=== PATIENT | female | born 2000 ===

== ENCOUNTER 2023-08-14 07:43 | Outpatient (CLI) | payer OTHER, SELFPAY | END 2023-08-14 07:44 | disposition home or self-care (01) | LOC: ANHAUDIO 07:44 | PROVIDERS: PCP Family Medicine; Visit Provider Family Medicine | DX: Z01.10 Encounter for examination of ears and hearing without abnormal findings (principal) | CPT/HCPCS: 92552; 92556; 92567 ==

== ENCOUNTER 2024-08-28 08:47 | Outpatient (CLI) | payer MEDICARE, MEDICAID, SELFPAY ==
--- OUTSIDE RECORDS SUMMARY | 2024-08-28 09:30 | XMS_ITS ---
Author Organization [employer] Address [address] [place] [address] Care Team Providers Care Dietary Assistant Name Role Phone Jasmeet Nunez Primary Care Provider JUMANA Johnson Unavailable [phone] REASON FOR VISIT Other Encounters Encounter Location Date Provider Diagnosis [facility] [address] [place] [address] 08/04/2023 JUMANA NOGUERA Plan Of Treatment No Information Progress Notes * SUKHDEV ZHAO MDOB:2000 (22 yo F)Acc No.[id number]:08/04/2023 Patient: Britton SUKHDEV GONZALES :2000 A ge:22 Y S ex:Female Address:[address] [place] [id number] * true * Date: Generated for Printi ng/Faxing/eTransmitting on: 0 08/28/2024 09:29 AM CDT
--- OUTSIDE RECORDS SUMMARY | 2024-08-28 09:30 | XMS_ITS ---
Author Organization Unknown Address [address] [place] [phone] Phone Care Team Providers Care Mental Health Coordinator Name Role Phone CHUCKIE Conklin Attending Unavailable TAMIA Pierce Primary Unavailable Immunization Immunization Date Status Additional Notes Code Code System MMR 01/05/2004 Completed 03 CVX MMR 08/06/2007 Completed 03 CVX IPV 01/28/2003 Completed 10 CVX IPV 03/31/2003 Completed 10 CVX IPV 06/02/2003 Completed 10 CVX IPV 08/06/2007 Completed 10 CVX influenza, split (incl. purified surface antigen) 04/09/2009 Completed 15 CV X DTaP 01/28/2003 Completed 20 CVX DTaP 03/31/2003 Completed 20 CVX DTaP 06/02/2003 Completed 20 CVX DTaP 01/05/2004 Completed 20 CVX DTaP 08/06/2007 Completed 20 CVX varicella 01/05/2004 Completed 21 CVX varicella 08/06/2007 Completed 21 CVX Hep A, pediatric, unspecifie d formulation 11/11/2009 Completed 31 CVX Hep A, pediatric, unspecifie d formulation 11/10/2010 Completed 31 CVX Hib-Hep B 01/28/2003 Completed 51 CVX Hib-Hep B 03/31/2003 Completed 51 CVX Hib-Hep B 01/05/2004 Completed 51 CVX HPV, quadrivalent 12/11/2014 Completed 62 C VX influenza, unspecified formulation 02/07/2005 Completed 88 CVX influenza, unspecified formulation 02/23/2005 Completed 88 CVX influenza, unspecified formulation 03/06/2006 Completed 88 CVX influenza, unspecified formulation 02/07/2007 Completed 88 CVX influenza, unspecified formulation 03/15/2007 Completed 88 CVX influenza, unspecified formulation 01/14/2010 Completed 88 CVX pneumococcal conjugate PCV 7 01/28/2003 Completed 100 CVX pneumococcal conjugate PCV 7 03/31/2003 Completed 100 CVX pneumococcal conjugate PCV 7 06/02/2003 Completed 100 CVX pneumococcal conjugate PCV 7 01/05/2004 Completed 100 CVX meningococcal MCV4P 12/11/2014 Completed 114 CVX Tdap 12/11/2014 Completed 115 CVX Novel [id number] 02/06/2009 Completed 127 CVX Novel [id number] 02/27/2009 Completed 127 CVX Meningococcal MCV4O 11/16/2020 Completed 136 CVX Influenza, split virus, trivalent, PF 01/13/2011 Completed 140 CVX Influenza, split virus, trivalent, preservative 12/20/2023 Completed 141 CVX Influenza, split virus, quadrivalent, PF 05/06/2022 Completed 150 CVX HPV9 12/21/2016 Completed 165 CVX COVID-19, mRNA, LNP-S, PF, 3 0 mcg/0.3 mL dose 08/26/2020 Completed 208 CVX COVID-19, mRNA, LNP-S, PF, 3 0 mcg/0.3 mL dose 09/17/2020 Completed 208 CVX COVID-19, mRNA, LNP-S, PF, 5 0 mcg/0.5 mL 12/21/2023 Completed 312 CVX Social History Type Status Start Date End Date Code Code Syst em Smoking History Never smoker (Never Smoked) 101473844 SNOMED CT Sex Female Assessment You had the following problems:ATTENTION-DEFICIT HYPERACTIVITY DISORDER, UNSPECIFIED TYPEOTHER ALLERGIC RHINITIS Hospital Discharge Instructions Should you have any questions prior to discharge, please contact a member of your healthcare team. If you have left the hospital and have any questions, please contact your primary care physician. Reason For Referral No Data Found Problems Problem Start Date Resolved Date Status Code Code System ATTENTION-DEFICIT HYPERACTIV ITY DISORDER, UNSPECIFIED TYPE active 149609363 S NOMED-CT OTHER ALLERGIC RHINITIS active 173622 04 SNOMED-CT Plan of Treatment US Pelvis (84410) 11/07/2023 US Pelvis/Transvaginal (93592) 11/07/19 24 US Pelvis (03599) 11/07/2023 US Pelvis/Transvaginal (53657) 07/30/20 24 Encounters Encounter Diagnosis Start Date Code Code Sys tem Arthralgia of the ankle and/or foot 09/11/2023 59044 4009 SNOMED-CT Personal Care Team Section Performer Name Performer Role Active Date Inactive JESSICA Hutchison PCP - Primary care physician 2023-05-10
--- OUTSIDE RECORDS SUMMARY | 2024-08-28 09:30 | XMS_ITS ---
Author Organization [employer] Address [address] [place] [address] Care Team Providers Care Crew Trainer Name Role Phone Jasmeet Nunez Primary Care Provider JUMANA Johnsno Unavailable [phone] REASON FOR VISIT Other Encounters Encounter Location Date Provider Diagnosis [facility] [address] [place] [address] 08/03/2023 JUMANA NOGUERA Plan Of Treatment No Information Progress Notes * SUKHDEV ZHAO MDOB:2000 (22 yo F)Acc No.[id number]:08/03/2023 Patient: Britton SUKHDEV GONZALES :2000 A ge:22 Y S ex:Female Address:[address] [place] [id number] * true * Date: Generated for Printi ng/Faxing/eTransmitting on: 0 08/28/2024 09:30 AM CDT
--- OUTSIDE RECORDS SUMMARY | 2024-08-28 09:30 | XMS_ITS ---
Author Organization Unknown Address [address] [place] [phone] Phone Care Team Providers Care Sheet Roller Operator Name Role Phone BHARTIPHOEBE DEE DEE Attending Unavailable TAMIA Pierce Primary Unavailable Immunization [...] CVX Tdap 12/11/2014 Completed 115 CVX Novel [id number] 02/06/2009 Completed 127 CVX Novel [id number]-B1Q4-43 02/27/2009 Completed 127 CVX Meningococcal MCV4O 11/16/2020 [...] 0 mcg/0.5 mL 12/21/2023 Completed 312 CVX Results SHRIMP IGE(REF) - Collect Da te/Time: 05/23/2023 06:25 [facility] ID: [id number] [id number] [place] [address], [phone] LOINC: 6246-3 Test Value Unit Reference Range Code Code System Flag [id number] Shrimp 9.71 Class IV 6246-3 LOINC A CRAB IGE(REF) - Collect Date /Time: 05/23/2023 06:25 [facility] ID: [id number] [address] [place] [address], [phone] LOINC: 6092-1 Test Value Unit Reference Range Code Code System Flag [id number] Crab 1.78 Class III 6092-1 LOINC A PEANUT IGE - Collect Date/Ti me: 05/23/2023 06:25 [facility] ID: [id number] [address] [place] [address], [phone] LOINC: 6206-7 Test Value Unit Reference Range Code Code System Flag [id number] Peanut 3.77 Class III 6206-7 LOINC A ALMOND IGE(REF) - Collect Da te/Time: 05/23/2023 06:25 [facility] ID: [id number] [address] [place] [address], [phone] LOINC: 6019-4 Test Value Unit Reference Range Code Code System Flag [id number] Burke 3.11 Class III 6019-4 LOINC A CASHEW NUT IGE REF - Collect Date/Time: 05/23/2023 06:25 [facility] ID: [id number] [address] [place] [address], [phone] LOINC: 6718-1 Test Value Unit Reference Range Code Code System Flag [id number] Cashew Nut 0.63 Class II 6718-1 LOINC A WALNUT IGE - Collect Date/Ti me: 05/23/2023 06:25 [facility] ID: [id number] [address] [place] [address], [phone] LOINC: 6273-7 Test Value Unit Reference Range Code Code System Flag [id number] Oak Vale 1.91 Class III 6273-7 LOINC A PECAN NUT IGE - Collect Date /Time: 05/23/2023 06:25 [facility] ID: [id number] [address] [place] [address], [phone] LOINC: 6208-3 Test Value Unit Reference Range Code Code System Flag [id number] Pecan Nut 0.16 Class 0/I 6208-3 LOINC A HAZELNUT IGE(REF) - Collect Date/Time: 05/23/2023 06:25 [facility] ID: [id number] [address] [place] [address], [phone] LOINC: 6136-6 Test Value Unit Reference Range Code Code System Flag [id number] Hazelnut(Filbert) 1.99 Class III 6136-6 MATTHIAS NC A TUNA IGE REF - Collect Date/ Time: 05/23/2023 06:25 [facility] ID: [id number] [id number] [place] [address], [phone] LOINC: 6270-3 Test Value Unit Reference Range Code Code System Flag [id number] Tuna <0.10 Class 0 6270-3 LOINC Social History Type Status Start Date End Date Code Code Syst em Smoking History Never smoker (Never Smoked) 002127664 SNOMED CT Sex Female Assessment You had [...] ATTENTION-DEFICIT HYPERACTIV ITY DISORDER, UNSPECIFIED TYPE active 795133687 S NOMED-CT OTHER ALLERGIC RHINITIS active 154192 04 SNOMED-CT Plan of Treatment US Pelvis (80298) 11/07/2023 US Pelvis/Transvaginal (88557) 11/07/19 24 US Pelvis (12693) 11/07/2023 US Pelvis/Transvaginal (73348) 11/07/19 24 Encounters Encounter Diagnosis Start Date Code Code Sys tem Attention-deficit hyperactiv ity disorder, unspecified type 05/23/2023 SNOMED-CT Personal Care Team Section Performer Name Performer Role Active Date Inactive JESSICA Hutchison PCP - Primary care physician 2023-05-10
--- OUTSIDE RECORDS SUMMARY | 2024-08-28 09:30 | XMS_ITS ---
Author Organization Unknown Address [address] [place] [phone] Phone Care Team Providers Care Shipping And Receiving Weigher Name Role Phone SINA JARVIS PMHNP Attending Unavailable TAMIA Pierce Primary Unavailable Immunization [...] CVX Tdap 12/11/2014 Completed 115 CVX Novel [id number] 02/06/2009 Completed 127 CVX Novel [id number]-T8K0-43 02/27/2009 Completed 127 CVX Meningococcal MCV4O 11/16/2020 [...] mcg/0.5 mL 12/21/2023 Completed 312 CVX Results COMPREHENSIVE METABOLIC PANE L - Collect Date/Time: 04/29/2024 07:55 [facility] ID: [id number] [address] [place], [place], [phone] LOINC: 50294-9 Test Value Unit Reference Range Code Code System Flag FASTING NO BUN 8 mg/dL L=7 H=20 3094-0 LOINC CREATININE 0.80 mg/dL L=0.52 H=1.04 2160-0 LOINC GLUCOSE 102 mg/dL L=74 H=106 2345-7 LOINC SODIUM 137 mmol/L L=132 H=144 2951-2 LOINC POTASSIUM 4.6 mmol/L L=3.5 H=5.1 2823-3 LOINC CHLORIDE 101 mmol/L L=98 H=107 2075-0 LOINC CO2 26.0 mmol/L L=22.0 H=30.0 8-9 LOINC ANION GAP 15 L=10 H=20 35052-2 LOINC OSMOLALITY 283 mOs/kG L=280 H=296 68988-5 LOINC BUN/CREAT 10.0 3097-3 LOINC CALCIUM 9.5 mg/dL L=8.3 H=10.5 61273-2 LOINC AST 26 U/L L=15 H=46 1920-8 LOINC ALT 28 U/L L=9 H=72 1742-6 LOINC ALKALINE PHOS 131 U/L L=38 H=126 6768-6 LOINC H TOTAL BILI 0.4 mg/dL L=0.2 H=1.3 1975-2 LOINC ALBUMIN 3.8 G/dL L=3.5 H=5.0 1751-7 LOINC TOTAL PROTEIN 7.1 g/L L=6.3 H=8.2 2885-2 LOINC A/G RATIO 1.2 81175-4 LOINC AGE 23 44440-0 LOINC eGFR NON-AFR 96 ml/min eGFR AFR AMER 116 ml/min LIPID PANEL - Collect Date/T sivakumar: 04/29/2024 07:55 [facility] ID: [id number] [address] [place] [address], [phone] LOINC: 82659-5 Test Value Unit Reference Range Code Code System Flag FASTING NO CHOLESTEROL 162 mg/dL L=0 H=200 3-3 LOINC TRIGLYCERIDE 108 mg/dL L=0 H=150 1-8 LOINC HDL 36 mg/dL L=40 H=60 2084-9 LOINC L LDL 102 mg/dL 2088-1 LOINC TSH - Collect Date/Time: 07:55 [facility] ID: [id number] [address] [place] [address], [phone] LOINC: 47471-9 Test Value Unit Reference Range Code Code System Flag TSH. 1.280 uIU/L L=0.470 H=4.680 58898-9 LOINC 25 HYDROXY VITAMIN D - Colle ct Date/Time: 04/29/2024 07:55 [facility] ID: [id number] [address] [place], [place], [phone] LOINC: Test Value Unit Reference Range Code Code System Flag VITAMIN D 45.9 ng/ml L=30.0 H=100 31501-9 LOINC CBC W/ DIFF - Collect Date/T sivakumar: 04/29/2024 07:55 [facility] ID: [id number] [address] [place], [place], [phone] LOINC: 07053-7 Test Value Unit Reference Range Code Code System Flag WBC 10.0 10^3uL L=4.8 H=10.8 RBC 4.69 10^6uL L=4.20 H=5.40 HEMOGLOBIN 13.5 g/dL L=12.0 H=16.0 718-7 LOINC HEMATOCRIT 42.0 VOL% L=37.0 H=47.0 4544-3 LOINC MCV 89.6 fL L=81.0 H=99.0 MCH 28.8 pg L=27.0 H=32.0 MCHC 32.1 g/dL L=32.0 H=36.0 PLATELETS 365 10^3uL L=100 H=400 68125-5 LOINC RDW 13.7 % L=11.7 H=15.5 %GRAN 65.1 % L=40.0 H=70.0 30762-5 LOINC %LYMPH 27.0 % L=20.0 H=45.0 736-9 LOINC %MONO 5.8 % L=2.0 H=10.0 05062-8 LOINC %EOS 1.2 % L=0.0 H=6.0 713-8 LOINC %BASO 0.3 % L=0.0 H=3.0 706-2 LOINC #NEUT 6.5 10^3uL L=1.9 H=7.6 62145-7 LOINC #LYMPH 2.7 10^3uL L=0.9 H=4.9 99827-1 LOINC #MONO 0.6 10^3uL L=0.1 H=0.9 97754-9 LOINC #EOS 0.1 10^3uL L=0.0 H=0.6 712-0 LOINC #BASO 0.03 10^3uL L=0.00 H=0.10 59026-8 LOINC #IM GRANS 0.1 10^3uL L=0.0 H=7.0 71723-5 LOINC %IM GRANS 0.6 % L=0.0 H=5.0 38462-6 LOINC %NRB 0.0 L=0.0 H=0.2 46413-0 LOINC #NRB 0.000 L=0.000 H=0.012 12655-3 LOINC MANUAL DIFF NOT INDICATED RBC MORPH NOT INDICATED Social History Type Status Start Date End Date Code Code Syst em Smoking History Never smoker (Never Smoked) 451475947 SNOMED CT Sex Female Assessment You had [...] ATTENTION-DEFICIT HYPERACTIV ITY DISORDER, UNSPECIFIED TYPE active 311525326 S NOMED-CT OTHER ALLERGIC RHINITIS active 915716 04 SNOMED-CT Plan of Treatment US Pelvis (22131) 11/07/2023 US Pelvis/Transvaginal (94511) 11/07/19 24 US Pelvis (08078) 11/07/2023 US Pelvis/Transvaginal (87366) 11/07/19 24 Encounters Encounter Diagnosis Start Date Code Code Sys tem Other fpc (current) drug therapy 04/29/2024 SNOMED-CT Personal Care Team Section Performer Name Performer Role Active Date Inactive JESSICA Hutchison PCP - Primary care physician 2023-05-10
--- OUTSIDE RECORDS SUMMARY | 2024-08-28 09:30 | XMS_ITS | Patient Health Record ---
Author Organization [facility] Address [address] [place] [address] Care Team Providers Care Non Destructive Testing Engineer Name Role Phone Jasmeet Nunez Primary Care Provider Unavailabl e Allergies No Known Allergies Reason For Referral No Information Medications Medication SIG (Take, Route, Frequency, Duration) Notes Start Date End Date Status Medrol 4 MG as directed Orally 05/26/2023 Active Sertraline HCl 25 MG Oral for 29 Days Active Montelukast Sodium 10 MG Oral for 29 Days Active Cetirizine HCl 10 MG Oral for 29 Days Active Social History Tobacco Use: Social History Observation Description Date Details (start date - stop date) Never Smoker NA - NA Tobacco Use/Smoking Question Answer Notes Tobacco use: nonsmoker Plan Of Treatment No Information Insurance Providers Payer Name Payer Address Payer Phone Subscriber Number Group Number Insured Name Patient Relationship to Insured Coverage Start Date Coverage End Date [address] [id number] SUKHDEV ZHAO Self - patient is the insured Medical (General) History Medical History History ICD Code anxiety
--- OUTSIDE RECORDS SUMMARY | 2024-08-28 09:32 | XMS_ITS ---
Author Organization Unknown Address [address] [place] [phone] Phone Care Team Providers Care Director Of Community Center Name Role Phone DRE FELIPE Attending Unavailable TAMIA Pierce Primary Unavailable Immunization [...] CVX Tdap 12/11/2014 Completed 115 CVX Novel [id number] 02/06/2009 Completed 127 CVX Novel [id number]-[id number] 02/27/2009 Completed 127 CVX Meningococcal MCV4O 11/16/2020 [...] mcg/0.5 mL 12/21/2023 Completed 312 CVX Results US PELVIS - Completed: 11/06 11:42 LOINC: EXAM DESCRIPTION: US TRANSVAG NON OB; US PELVIS REASON FOR STUDY: Bilateral lower abdominal/pelvic pain and cramping for 6 months. TECHNIQUE: Grayscale ultrasound of the pelvic contents was performed with transabdominal and transvaginal transducer. COMPARISON: None FINDINGS: UTERUS: The uterus is anteverted. The uterus is homogenous in echotexture and measures 7.5 x 3.6 x 2.4 cm. ENDOMETRIUM: The endometrium measures 0.2 cm in thickness. RIGHT OVARY: The right ovary measures 3.6 x 2.8 x 2.8 cm. 2.7 x 2.3 x 2.1 cm thin-walled unilocular cyst. There is documentation of color Doppler flow in the right ovary. The right ovary otherwise appears unremarkable. LEFT OVARY: The left ovary measures 2.9 x 2.9 x 1.8 cm. There is documentation of color Doppler flow in the left ovary. The left ovary appears unremarkable. PELVIC FLUID: There is no evidence of free fluid in the pelvis. OTHER: No other significant findings. IMPRESSION: ? ? 2.7 x 2.3 x 2.1 cm thin-walled unilocular right ovarian cyst. ? ? Otherwise, unremarkable pelvic ultrasound. THIS IS AN ELECTRONICALLY VERIFIED FINAL REPORT 11/08/2023 8:51 AM - Electronically signed by Laron Edmondson M.D. RB: RB Report ID: [id number] Reading Location: [id number] US TRANSVAG NON OB - Complet ed: 11/07/2023 11:42 LOINC: EXAM DESCRIPTION: US TRANSVAG NON OB; US PELVIS REASON FOR STUDY: Bilateral lower abdominal/pelvic pain and cramping for 6 months. TECHNIQUE: Grayscale ultrasound of the pelvic contents was performed with transabdominal and transvaginal transducer. COMPARISON: None FINDINGS: UTERUS: The uterus is anteverted. The uterus is homogenous in echotexture and measures 7.5 x 3.6 x 2.4 cm. ENDOMETRIUM: The endometrium measures 0.2 cm in thickness. RIGHT OVARY: The right ovary measures 3.6 x 2.8 x 2.8 cm. 2.7 x 2.3 x 2.1 cm thin-walled unilocular cyst. There is documentation of color Doppler flow in the right ovary. The right ovary otherwise appears unremarkable. LEFT OVARY: The left ovary measures 2.9 x 2.9 x 1.8 cm. There is documentation of color Doppler flow in the left ovary. The left ovary appears unremarkable. PELVIC FLUID: There is no evidence of free fluid in the pelvis. OTHER: No other significant findings. IMPRESSION: ? ? 2.7 x 2.3 x 2.1 cm thin-walled unilocular right ovarian cyst. ? ? Otherwise, unremarkable pelvic ultrasound. THIS IS AN ELECTRONICALLY VERIFIED FINAL REPORT 11/08/2023 8:51 AM - Electronically signed by Laron Edmondson M.D. RB: GILA Report ID: [id number] Reading Location: [id number] Social History Type Status Start Date End Date Code Code Syst em Smoking History Never smoker (Never Smoked) 034319722 SNOMED CT Sex Female Assessment You had [...] ATTENTION-DEFICIT HYPERACTIV ITY DISORDER, UNSPECIFIED TYPE active 838279397 S NOMED-CT OTHER ALLERGIC RHINITIS active 724970 04 SNOMED-CT Plan of Treatment US Pelvis (52517) 11/07/2023 US Pelvis/Transvaginal (31392) 11/07/19 24 US Pelvis (08366) 11/07/2023 US Pelvis/Transvaginal (01808) 11/07/19 24 Encounters Encounter Diagnosis Start Date Code Code Sys tem Unspecified ovarian cyst, right side 11/07/2023 SNOMED-CT Personal Care Team Section Performer Name Performer Role Active Date Inactive JESSICA Hutchison PCP - Primary care physician 2023-05-10 Imaging Narrative Notes
--- OUTSIDE RECORDS SUMMARY | 2024-08-28 09:32 | XMS_ITS ---
Author Organization [facility] Address [address] [place] [address] Care Team Providers Care Assault Boat Coxswain Name Role Phone Jasmeet Nunez Primary Care Provider JUMANA Johnson Unavailable [phone] REASON FOR VISIT ankle pain Encounters Encounter Location Date Provider Diagnosis [facility] [address] [place] [address] 07/21/2023 JUMANA NOGUERA Pain in left ankle and joints of left foot M25.572 and Sprain of other ligament of left ankle, subsequent encounter S93.492D Assessments Encounter Date Diagnosis (ICD Code) Assessment Notes Treatment Notes Treatment Clinical Notes Section Notes 07/21/2023 Pain in left ankle and joints of left foot (ICD-10 - M25.572) 07/21/2023 Sprain of other ligament of left ankle, subsequent encounter (ICD-10 - S93.492D) We discussed the patient's injury. We discussed conservative treatment options and surgical treatment options. We discussed the expected course of recovery. We discussed complications and warning signs. Pt seen and evaluated. Discussed condition and treatment options. Discussed that she has less immobilization than she probably needed. Discussed starting over with her immobilization. Rx CAM boot, pt to wear for 4-6 weeks. Rx medrol dose frank. Then she can transition to therapy. If no improvement, may consider MRI. We discussed the patient's injury. We discussed conservative treatment options and surgical treatment options. We discussed the expected course of recovery. We discussed complications and warning signs. Pt seen and evaluated. Discussed condition and treatment options. Discussed she continues to have pain without improvement. She was not able to undergo PT due to her pain level. With her lack of improvement over the past nine months, she will likely need surgery. Will likely need surgery, will order MRI for surgical planning. Pt to stay in CAM boot. 07/21/2023 Other Plan Of Treatment Treatment Notes Assessment Notes Sprain of other ligament of left ankle, subsequent encounter We discussed the patient's injury. We discussed conservative treatment options and surgical treatment options. We discussed the expected course of recovery. We discussed complications and warning signs. Pt seen and evaluated. Discussed condition and treatment options. Discussed that she has less immobilization than she probably needed. Discussed starting over with her immobilization. Rx CAM boot, pt to wear for 4-6 weeks. Rx medrol dose frank. Then she can transition to therapy. If no improvement, may consider MRI. We discussed the patient's injury. We discussed conservative treatment options and surgical treatment options. We discussed the expected course of recovery. We discussed complications and warning signs. Pt seen and evaluated. Discussed condition and treatment options. Discussed she continues to have pain without improvement. She was not able to undergo PT due to her pain level. With her lack of improvement over the past nine months, she will likely need surgery. Will likely need surgery, will order MRI for surgical planning. Pt to stay in CAM boot. Next Appt Details Follow Up: after MRI, Reason : Progress Notes * SUKHDEV ZHAO MDOB:2000 (22 yo F)Acc No.[id number]:07/21/2023 Progress Notes Patient: SUKHDEV SCHOFIELD Provider: Rosalinda Noguera DPM :2000 A ge:22 Y S ex:Female Date:07/21/2023 Address:[address] [place], [place] [id number] Pcp:Jasmeet Nunez Subjective: * Chief Complaints: * A nkle pain * HPI: A nkle sprain: Pt relates to spraining her ankle last year, she thinks it was some time in the summer. Relates to continued pain. Relates she has been in the CAM boot, but one of the straps broke. Relates the ankle still pops and swells. Relates to minimal improvement. Relates she was not able to complete therapy due to continued pain and guarding. * ROS: G eneral / Constitutional: Patient denies c hills, fatigue, fever, headache. ? E NT: Patient denies n juanis congestion, sore throat. ? R espiratory: Patient denies c ough, chest pain, shortness of breath.? C ardiovascular: Patient denies c hest pain, claudication, palpitations.? G astrointestinal: Patient denies a bdominal pain, constipation, diarrhea, nausea, vomiting. * Medical History: * Surgical History: * Hospitalization/Major Diagno stic Procedure: * Medications: Objective: * Examination: D ermatologic: Skin findings: w arm and dry, no open ulcerations or interdigital macerations, bilateral. Edema m ild, generalized with some increased near the lateral ankle gutter. V ascular: Dorsalis pedis pulse: p alpable, bilateral. Posterior tibial pulse: p alpable, bilateral. Temperature gradient: w arm. N eurologic: Gross sensation i ntact, bilateral. M usculoskeletal: Gait: m ildly antalgic. Foot morphology: r ectus. Joint range of motion: o verall adequate range of motion noted. Strength n ormal strength. Pain elicited with palpation of: l ateral ankle near the ATFL, navicular tuberosity. Pain elicited with range of motion: e nd range of subtalar joint inversion and e version. Assessment: * Assessment: 1. S prain of other ligament of left ankle, subsequent encounter - S93.492D (Primary) 2 .?Pain in left ankle and joints of left foot - M25.572 Plan: * Treatment: * Procedure Codes: * Follow Up: a fter MRI * Billing Information: * Visit Code: 75365 Office Visit, Est Pt., Level 3. * Procedure Codes: * Sign off status: Completed true * Provider: Rosalinda Noguera DPM Date: 0 07/21/2023 Generated for Alicia marie/Kira/Shiraz on: 0 08/28/2024 09:32 AM CDT History and Physical Notes * HPI (History of Present Illness) Category Sub-Category Detail Notes Category Not es Ankle sprain Pt relates to s praining her ankle last year, she thinks it was some time in the summer. Relates to continued pain. Relates she has been in the CAM boot, but one of the straps broke. Relates the ankle still pops and swells. Relates to minimal improvement. Relates she was not able to complete therapy due to continued pain and guarding. Examination Category Sub-Category Detail Notes Category Not es Dermatologic Skin findings: warm and dry, no open ulcerations or interdigital macerations, bilateral Edema mild, generalized wi th some increased near the lateral ankle gutter Neurologic Gross sensation intact, bilateral Musculoskeletal Gait: mildly antalgic Foot morphology: rectus Joint range of motion: overall adequate range of motion noted Pain elicited with palpation of: lateral ankle near the ATFL, navicular tuberosity Pain elicited with range of motion: end range of subtalar joint inversion and eversion Strength normal strength Vascular Dorsalis pedis pulse: palpable, bilateral Temperature gradient: warm Posterior tibial pulse: palpable, bilate ral
--- OUTSIDE RECORDS SUMMARY | 2024-08-28 09:32 | XMS_ITS ---
Author Organization Unknown Address [address] [place] [phone] Phone Care Team Providers Care Telecom Engineer Name Role Phone TAMIA LOPEZ Kari Attending Unavailable Immunization Immunization Date Status Additional Notes [...] CVX Tdap 12/11/2014 Completed 115 CVX Novel [id number] 02/06/2009 Completed 127 CVX Novel [id number] 02/27/2009 Completed 127 CVX Meningococcal MCV4O 11/16/2020 [...] mcg/0.5 mL 12/21/2023 Completed 312 CVX Results CBC W/ DIFF - Collect Date/T sivakumar: 05/02/2023 08:10 [facility] ID: [id number] [address] [place], [place], [id number] LOINC: 88089-6 Test Value Unit Reference Range Code Code System Flag WBC 7.6 10^3uL L=4.8 H=10.8 RBC 4.66 10^6uL L=4.20 H=5.40 HEMOGLOBIN 13.7 g/dL L=12.0 H=16.0 718-7 LOINC HEMATOCRIT 41.7 VOL% L=37.0 H=47.0 4544-3 LOINC MCV 89.5 fL L=81.0 H=99.0 MCH 29.4 pg L=27.0 H=32.0 MCHC 32.9 g/dL L=32.0 H=36.0 PLATELETS 278 10^3uL L=100 H=400 66347-3 LOINC RDW 13.5 % L=11.7 H=15.5 %GRAN 58.3 % L=40.0 H=70.0 32303-8 LOINC %LYMPH 29.8 % L=20.0 H=45.0 736-9 LOINC %MONO 9.8 % L=2.0 H=10.0 99125-6 LOINC %EOS 1.6 % L=0.0 H=6.0 713-8 LOINC %BASO 0.4 % L=0.0 H=3.0 706-2 LOINC #NEUT 4.5 10^3uL L=1.9 H=7.6 33395-3 LOINC #LYMPH 2.3 10^3uL L=0.9 H=4.9 92608-5 LOINC #MONO 0.8 10^3uL L=0.1 H=0.9 16919-5 LOINC #EOS 0.1 10^3uL L=0.0 H=0.6 712-0 LOINC #BASO 0.03 10^3uL L=0.00 H=0.10 99756-1 LOINC #IM GRANS 0.0 10^3uL L=0.0 H=7.0 58534-6 LOINC %IM GRANS 0.1 % L=0.0 H=5.0 02658-6 LOINC %NRB 0.0 L=0.0 H=0.2 90776-7 LOINC #NRB 0.000 L=0.000 H=0.012 69230-9 LOINC MANUAL DIFF NOT INDICATED RBC MORPH NOT INDICATED COMPREHENSIVE METABOLIC PANE L - Collect Date/Time: 05/02/2023 08:10 [facility] ID: [id number] [address] [place], [place], [id number] LOINC: 76926-7 Test Value Unit Reference Range Code Code System Flag FASTING NO BUN 9 mg/dL L=7 H=20 3094-0 LOINC CREATININE 0.70 mg/dL L=0.52 H=1.04 2160-0 LOINC GLUCOSE 82 mg/dL L=74 H=106 2345-7 LOINC SODIUM 138 mmol/L L=132 H=144 2951-2 LOINC POTASSIUM 4.4 mmol/L L=3.5 H=5.1 2823-3 LOINC CHLORIDE 107 mmol/L L=98 H=107 2075-0 LOINC CO2 25.0 mmol/L L=22.0 H=30.0 8-9 LOINC ANION GAP 10 L=10 H=20 95135-0 LOINC OSMOLALITY 284 mOs/kG L=280 H=296 47139-8 LOINC BUN/CREAT 12.9 3097-3 LOINC CALCIUM 9.3 mg/dL L=8.3 H=10.5 67154-1 LOINC AST 47 U/L L=15 H=46 1920-8 LOINC H ALT 99 U/L L=9 H=72 1742-6 LOINC H ALKALINE PHOS 137 U/L L=38 H=126 6768-6 LOINC H TOTAL BILI 0.6 mg/dL L=0.2 H=1.3 1975-2 LOINC ALBUMIN 3.9 G/dL L=3.5 H=5.0 1751-7 LOINC TOTAL PROTEIN 6.9 g/L L=6.3 H=8.2 2885-2 LOINC A/G RATIO 1.3 76552-8 LOINC AGE 22 16668-8 LOINC eGFR NON-AFR 113 ml/min eGFR AFR AMER 137 ml/min TSH - Collect Date/Time: 08:10 [facility] ID: [id number] [place], [place], [id number] LOINC: 78878-0 Test Value Unit Reference Range Code Code System Flag TSH. 1.960 uIU/L L=0.470 H=4.680 80937-0 LOINC 25 HYDROXY VITAMIN D - Colle ct Date/Time: 05/02/2023 08:10 [facility] ID: [id number] [place], [place], [id number] LOINC: Test Value Unit Reference Range Code Code System Flag VITAMIN D < 21.6 ng/ml L=30.0 H=100 67724-2 LOINC L Social History Type Status Start Date End Date Code Code Syst em Smoking History Never smoker (Never Smoked) 746754619 SNOMED CT Sex Female Assessment You had [...] ATTENTION-DEFICIT HYPERACTIV ITY DISORDER, UNSPECIFIED TYPE active 810155153 S NOMED-CT OTHER ALLERGIC RHINITIS active 312205 04 SNOMED-CT Plan of Treatment US Pelvis (60490) 11/07/2023 US Pelvis/Transvaginal (73824) 11/07/19 24 US Pelvis (72274) 11/07/2023 US Pelvis/Transvaginal (78503) 11/07/19 24 Encounters Encounter Diagnosis Start Date Code Code Sys tem Other intermodal dispatcher (current) drug therapy 05/02/2023 SNOMED-CT Personal Care Team Section Performer Name Performer Role Active Date Inactive JESSICA Hutchison PCP - Primary care physician 2023-05-10
--- OUTSIDE RECORDS SUMMARY | 2024-08-28 09:33 | XMS_ITS ---
Author Organization Unknown Address [address] [place] [phone] Phone Care Team Providers Care Applied Behavior Science Specialist Name Role Phone DRE FELIPE Attending Unavailable [...] CVX Tdap 12/11/2014 Completed 115 CVX Novel [id number] 02/06/2009 Completed 127 CVX Novel [id number] 02/27/2009 Completed 127 CVX Meningococcal MCV4O 11/16/2020 [...] mcg/0.5 mL 12/21/2023 Completed 312 CVX Results ANKLE 3V LEFT - Completed: 0 05/10/2023 12:16 LOINC: EXAM DESCRIPTION: ANKLE 3V LEFT; FOOT 3V LEFT REASON FOR STUDY: Prior sprain to left foot and left ankle that occurred last year. Chronic pain since. Duration: sometime last year, patient unsure exactly when TECHNIQUE: 3 radiographic view(s) of the left ankle and 3 radiographic views of the left foot . 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 These can sometimes be associated with posterior tibial tendon abnormalities. There is no acute fracture, malalignment or osseous abnormality. The joint spaces are normal. SOFT TISSUES: Within normal limits. IMPRESSION: ? ? No acute bony abnormality in the left foot and ankle. ? ? 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 These can sometimes be associated with posterior tibial tendon abnormalities. MRI could be used for additional evaluation if clinically indicated. THIS IS AN ELECTRONICALLY VERIFIED FINAL REPORT 05/10/2023 1:05 PM - Electronically signed by Laron Edmondson M.D. RB: GILA Report ID: [id number] Reading Location: [id number] FOOT 3V LEFT - Completed: 12:16 LOINC: EXAM DESCRIPTION: ANKLE 3V LEFT; FOOT 3V LEFT REASON FOR STUDY: Prior sprain to left foot and left ankle that occurred last year. Chronic pain since. Duration: sometime last year, patient unsure exactly when TECHNIQUE: 3 radiographic view(s) of the left ankle and 3 radiographic views of the left foot . 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 These can sometimes be associated with posterior tibial tendon abnormalities. There is no acute fracture, malalignment or osseous abnormality. The joint spaces are normal. SOFT TISSUES: Within normal limits. IMPRESSION: ? ? No acute bony abnormality in the left foot and ankle. ? ? 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 These can sometimes be associated with posterior tibial tendon abnormalities. MRI could be used for additional evaluation if clinically indicated. THIS IS AN ELECTRONICALLY VERIFIED FINAL REPORT 05/10/2023 1:05 PM - Electronically signed by Laron Edmondson M.D. RB: GILA Report ID: [id number] Reading Location: [id number] Social History Type Status Start Date End Date Code Code Syst em Smoking History Never smoker (Never Smoked) 717847820 SNOMED CT Sex Female Assessment You had [...] ATTENTION-DEFICIT HYPERACTIV ITY DISORDER, UNSPECIFIED TYPE active 784179381 S NOMED-CT OTHER ALLERGIC RHINITIS active 738420 04 SNOMED-CT Plan of Treatment US Pelvis (29138) 11/07/2023 US Pelvis/Transvaginal (73605) 11/07/19 24 US Pelvis (10293) 11/07/2023 US Pelvis/Transvaginal (76727) 11/07/19 24 Encounters Encounter Diagnosis Start Date Code Code Sys tem Arthralgia of the ankle and/or foot 05/10/2023 96383 4009 SNOMED-CT Personal Care Team Section Performer Name Performer Role Active Date Inactive JESSICA Hutchison PCP - Primary care physician 2023-05-10 Imaging Narrative Notes
== END 2024-08-28 08:48 | disposition home or self-care (01) ==
LOC: ANHAUDIO 08:47
PROVIDERS: PCP Family Medicine; Visit Provider Family Medicine
DX: Z01.10 Encounter for examination of ears and hearing without abnormal findings (principal)
CPT/HCPCS: 92557; 92567